=== PATIENT | male | born 1980 | race Caucasian/White ===

== ENCOUNTER 2023-03-16 19:24 | Emergency (ER) | payer OTHER, SELFPAY ==
--- NOTE | ~2023-03-16 | XR_ITS ---
EXAM: XR ankle RT min 3V DATE: 03/16/2023 19:41 HISTORY: FALL TODAY . COMPARISON: X-ray right foot 03/05/2017. FINDINGS: Normal mineralization. Osseous fragment noted laterally, below the level of the talus, wit h overlying soft tissue swelling, donor site is not definitively identified but in the expected locat ion of a EDB avulsion fracture. Old lateral malleolar avulsion fracture fragments. Uncomplicated appe aring screws in the first metatarsal. No lytic or blastic lesion. Joint spaces are maintained. No ero miles or periosteal change. Soft tissues within normal limits. IMPRESSION: Osseous fragment laterally, with overlying soft tissue swelling, possible extensor digito rum brevis avulsion fracture. Reviewed, dictated and finalized at location K. IMPRESSION: Osseous fragment laterally, with overlying soft tissue swelling, po ssible extensor digitorum brevis avulsion fracture.
[2023-03-16 19:33] VITALS: BP 150/103; PULSE 117; RESP 20; TEMP 36.6; O2SAT 97
--- NOTE | 2023-03-16 19:38 | ED.LOWEXIN ---
HPI - Extremity Injury (Lower) General Chief Complaint: Extremity Injury, Lower Stated Complaint: twisted right ankle Time Seen by Provider: 03/16/23 19:38 Source: patient, RN notes reviewed and old records reviewed Mode of arrival: ambulatory Limitations: no limitations History of Present Illness HPI Narrative: 42 year old male present to express care with complaint of right ankle injury today at 1400 when he was moving furniture and stepped on uneven pavement and rolled his foot/ankle. Patient reports pain to the lateral aspect of his right ankle with swelling and some ecchymosis,Patient reports pain to lateral ankle heel and posterior ankle region.is unable to bear weight to his right foot due to pain,. Patient has strong pedal pusle right ankle with sensation and circulation intact to right foot. MD complaint: ankle injury and foot injury Onset (ago): hour(s) (1400 today) Injury: Right: ankle and foot Type of Injury: inversion Place: home Severity scale (1-10): 8 Exacerbating factors: weight bearing and movement Treatments prior to arrival: other (using home crutches, elevation) Related Data Allergies Allergy/AdvReac Type Severity Reaction Status Date / Time iron Allergy Mild Unknown Verified 03/16/23 19:28 Review of Systems Review of Systems: CONSTITUTIONAL: Denies fever, chills, or sweats. EYES: Denies visual changes, redness, or discharge. ENT: Denies rhinorrhea, congestion, sore throat, or otalgia. CARDIOVASCULAR: Denies chest pain, palpitations, or edema. RESPIRATORY: Denies cough or dyspnea. GASTROINTESTINAL: Denies abdominal pain, nausea, vomiting, or diarrhea. GENITOURINARY: Denies dysuria or hematuria. SKIN: red raised itchy rash to left abdomen no vesicles or weeping MUSCULOSKELETAL: Denies back pain, positive for right ankle joint pain, or myalgia. NEUROLOGIC: Denies headache, numbness, or weakness. PSYCHIATRIC: Denies anxiety or depression. . All systems reviewed & are unremarkable except as noted in HPI and below [facility] Past Medical History Medical History (Updated 03/17/23 @ 06:44 by Anca Franco NP) Superior labrum [id number] (SLAP) tear of left shoulder surgical repair Surgical History Surgical History (Updated 03/16/23 @ 20:37 by Anca L. Salvador, [employer]) History of bunionectomy of right great toe Social History Social History (Updated 03/16/23 @ 20:36 by Anca Franco NP) Tobacco type: e-cigarettes/vaping Alcohol intake: current Alcohol use details: social Substance use type: does not use Gender identity (if verbalized by the patient): Male Comments At time of signature, agree with nursing past medical, surgical, social and family history. There is no relevant family history pertinent to the presenting complaint Exam Narrative: GENERAL: Well-appearing, well-nourished, and in no acute distress. HEAD: Normocephalic, atraumatic. EYES: PERRLA and EOMI. ENT: Nares clear, no rhinorrhea or epistaxis. Mucous membranes moist.Tm;s normal, throat pink with no lesions or swelling NECK: Supple. no lymphadenopathy CHEST: Clear to auscultation. No respiratory distress.SAO2 97% on room air HEART: Regular rate and rhythm. No murmur heard. Normal peripheral pulses. ABDOMEN: Soft, nontender, nondistended, normal active bowel sounds. EXTREMITIES: Normal range of motion. No edema.Exception noted to lateral aspect of right ankle with swelling and some ecchymosis,palpable pain to lateral ankle and pain to heel region, patient is able to flex and extend foot but with some discomfort, unable to apply weight to right foot, strong right pedal pulse present. SKIN: Warm, dry, small patch of raised red rash to abdomen no weeping or vesicles is itching NEURO: No focal deficits. Alert and oriented x3. Course Course Emergency Course: Patient is aware of diagnosis, understands and agrees to treatment plan.? Anticipatory guidance given.? Patient agrees to follow-up as directed a
[2023-03-16 19:53] VITALS: BP 150/103; PULSE 117; RESP 20; TEMP 36.6; O2SAT 97
== END 2023-03-16 20:30 | disposition home or self-care (01) ==
PROVIDERS: Emergency Provider Registered Nurse; PCP Internal Medicine
DX: S82.891A Other fracture of right lower leg, initial encounter for closed fracture (principal); X50.9XXA Other and unspecified overexertion or strenuous movements or postures, initial encounter; X50.0XXA Overexertion from strenuous movement or load, initial encounter; L30.9 Dermatitis, unspecified; F17.290 Nicotine dependence, other tobacco product, uncomplicated
CPT/HCPCS: 29515; 73610; 99214; G0463